=== PATIENT | male | born 1990 | race Caucasian/White ===

== ENCOUNTER 2021-12-23 20:41 | Emergency (ER) | payer OTHER, SELFPAY ==
[2021-12-23 20:49] VITALS: BP 132/79; PULSE 80; RESP 18; TEMP 36.7; O2SAT 97
--- NOTE | 2021-12-23 21:18 | ED.GENADULT ---
HPI - General Adult General Chief complaint: Unspecified Stated complaint: covid exposure , cough Time Seen by Provider: 12/23/21 20:57 Source: patient Mode of arrival: ambulatory Limitations: no limitations History of Present Illness HPI narrative: This is a 31 year old male who presents for evaluation of covid exposure and cough. Patient states he was exposed to his nephew 6 days ago who was found to be positive for COVID . He and his family has developed dry cough so they are concerned they have covid. They have taken a covid test at [facility] 2 days ago, but they were told results would not return for 4-5 days. He denies chest pain, sob, sore throat, weakness or any other symptoms. He has receive covid vaccination but he has not gotten a booster shot. They want a covid test because they are going on a cruise this weekend. Related Data Home Medications Medication Instructions Recorded Confirmed amlodipine 12/23/21 fluoxetine 10 mg PO DAILY 12/23/21 12/23/21 Allergies Allergy/AdvReac Type Severity Reaction Status Date / Time amoxicillin Allergy Hives Verified 12/23/21 21:04 Penicillins Allergy Hives Verified 12/23/21 21:04 Review of Systems Review of Systems: CONSTITUTIONAL: Denies fever, chills, or sweats. EYES: Denies visual changes, redness, or discharge. ENT: Denies rhinorrhea, congestion, sore throat, or otalgia. CARDIOVASCULAR: Denies chest pain, palpitations, or edema. RESPIRATORY: Denies dyspnea. reports cough GASTROINTESTINAL: Denies abdominal pain, nausea, vomiting, or diarrhea. GENITOURINARY: Denies dysuria or hematuria. SKIN: Denies rash or itching. MUSCULOSKELETAL: Denies back pain, joint pain, or myalgia. NEUROLOGIC: Denies headache, numbness, or weakness. PSYCHIATRIC: Denies anxiety or depression. All systems reviewed & are unremarkable except as noted in HPI and below PMFSH Past Medical History Medical History (Updated 12/23/21 @ 21:23 by Nanda Ray MD) Hypertension Surgical History Surgical History (Updated 12/23/21 @ 21:18 by Nanda Ray MD) No pertinent past surgical history Social History Social History (Updated 12/23/21 @ 21:18 by Nanda Ray MD) Smoking status: Never smoker Exam Narrative: GENERAL: Well-appearing, well-nourished, and in no acute distress. HEAD: Normocephalic, atraumatic EYES: PERRLA and EOMI, conjunctiva clear without discharge EARS: TM's clear bilaterally without erythema or dullness NOSE: Nares clear, no rhinorrhea or epistaxis THROAT:Mucous membranes moist, Oropharynx normal without erythema, exudate, peritonsillar swelling or fluctuance NECK: Supple, without lymphadenopathy or mass RESPIRATORY: No respiratory distress, Airway patent, Respirations non-labored, Clear to auscultation without rales, rhonchi or wheeze HEART: Regular rate and rhythm. No murmur heard. Normal peripheral pulses. EXTREMITIES: No edema, normal strength with full range of motion. SKIN: Warm, dry, normal color without rash NEURO: Alert and oriented x3. CN 2-12 grossly intact. No focal deficits. PSYCH: Normal mood and affect. Course Reevaluation(s) Reevaluation #1: I Discussed with patient and family they will be tested but results will not return before discharge. I Also discussed CDC do not recommend travel for 10 days after exposure. Date: 12/23/21 Time: 21:21 Vital Signs Vital signs: Vital Signs Temperature 98.1 F 12/23/21 20:49 Pulse Rate 80 12/23/21 20:49 Respiratory Rate 18 12/23/21 20:49 Blood Pressure 132/79 12/23/21 20:49 Pulse Oximetry 97 12/23/21 20:49 Temperature 98.1 F 12/23/21 20:49 Pulse Rate 80 12/23/21 20:49 Respiratory Rate 18 12/23/21 20:49 Blood Pressure 132/79 12/23/21 20:49 Pulse Oximetry 97 12/23/21 20:49 Medical Decision Making Vital Signs Vital Signs: Vital Signs Temperature 98.1 F 12/23/21 20:49 Pulse Rate 80 12/23/21 20:49 Respiratory Rate 18
[2021-12-23 22:07] LABS: SARS-CoV-2 RNA PCR Negative
== END 2021-12-23 21:43 | disposition home or self-care (01) ==
LOC: ANHED 21:24
PROVIDERS: Emergency Provider General Practice; PCP Anesthesiology
DX: R05.9 Cough, unspecified (principal); Z20.822 Contact with and (suspected) exposure to COVID-19; I10 Essential (primary) hypertension
CPT/HCPCS: 99283; C9803; U0003; U0005